=== PATIENT | male | born 1985 | race Caucasian/White ===

== ENCOUNTER 2019-09-10 13:35 | Emergency (ER) | payer OTHER, SELFPAY ==
[2019-09-10 13:55] VITALS: BP 146/89; PULSE 73; RESP 20; TEMP 37.1; O2SAT 98; BMI 23.6
--- NOTE | 2019-09-10 13:55 | XR_ITS ---
PROCEDURE: XR CHEST 2V CLINICAL HISTORY: DRY COUGH Smoker COMPARISON: No exams were available for comparison FINDINGS: The cardiomediastinal silhouette and pulmonary vascularity are within normal limits. The lungs are clear without infiltrates, suspicious nodules, or pleural effusions. No acute bony abnormalities. IMPRESSION: No acute findings. Dictated by: Gilberto Chapa MD 09/10/2019 14:42 Electronically signed by Gilberto Chapa MD in [place] 09/10/2019 14:42
--- NOTE | 2019-09-10 14:16 | HMH.EDUTC ---
[facility] [place] Disposition Clinical Impression: Acute bronchitis Qualifiers: Bronchitis organism: unspecified organism Qualified Code(s): J20.9 - Acute bronchitis, unspecified Disposition: Home, Self-Care Condition on Discharge: Good Instructions: Acute Bronchitis, DI for Acute Bronchitis Additional Instructions: Drink plenty of fluids. Take tylenol or ibuprofen for pain or fever. Take the medications as directed. Follow up with your regular doctor. GO TO THE ER FOR ANY WORSENING SYMPTOMS Don't start the oral steroids until tomorrow, since you had the shot here today. Prescriptions: predniSONE [Deltasone 10mg tablet] 10 mg PO BID 4 Days #8 tab Transmission Status: Received by [email or web address] #[id number] Cefdinir [Omnicef 300mg Capsule] 300 mg PO BID #20 cap Transmission Status: Received by [email or web address] # Referrals: Provider,Referral, [Primary Care Provider] - Forms: Work/School Release Time of Disposition: 14:43 Medical Decision Making - Medical Records Medical records reviewed: No: I reviewed the patient's medical records. - Mike Inquiry Pt receiving controlled substance: No Vital Signs: 09/10/19 13:55 09/10/19 14:58 Temperature 98.7 F 98.7 F Temperature Source Oral Pulse Rate 73 Pulse Rate [Right Brachial] 73 Respiratory Rate 20 20 Blood Pressure 146/89 H Blood Pressure [Right Arm] 146/89 H Blood Pressure Mean [Right Arm] 108 Blood Pressure Source [Right Arm] Automatic Cuff Blood Pressure Position [Right Arm] Sitting 02 Sat by Pulse Oximetry 98 Oxygen Delivery Method Room Air Orders (Tests/Meds): ED MEDICATIONS Discontinued Medications Generic Name Dose Route Start Last Admin Trade Name Hillary PRN Reason Stop Dose Admin Ceftriaxone Sodium 1 gm 09/10/19 14:25 09/10/19 14:39 Rocephin 1gm Vial IM 09/10/19 14:26 1 gm ONCE ONE Administration Protocol Lidocaine HCl 0 ml 09/10/19 14:25 09/10/19 14:39 Lidocaine 1% 10ml Mdv IM 09/10/19 14:26 2.1 ml ONCE ONE Administration Methylprednisolone Sodium Succinate 125 mg 09/10/19 14:25 09/10/19 14:39 Solu-Medrol 125mg/2ml Vial IM 09/10/19 14:26 125 mg ONCE ONE Administration ORDERS Category Date Time Status SARS-CoV-2, SIMONA Stat Lab 09/10/19 14:10 Received - Radiology Data #1 Image(s): Chest Image Reviewed: Yes I reviewed the patient's radiology image, Yes I have reviewed radiologist's interpretation Preliminary Findings: No Infiltrates Seen PROCEDURE: XR CHEST 2V CLINICAL HISTORY: DRY COUGH Smoker COMPARISON: No exams were available for comparison FINDINGS: The cardiomediastinal silhouette and pulmonary vascularity are within normal limits. The lungs are clear without infiltrates, suspicious nodules, or pleural effusions. No acute bony abnormalities. IMPRESSION: No acute findings. Dictated by: Gilberto Chapa MD 09/10/2019 14:42 Electronically signed by Gilberto Chapa MD in [place] 09/10/2019 14:42 [facility] [place] HPI - General Stated complaint: cough,vomiting Time Seen by Provider: 09/10/19 14:00 Mode of Arrival: Ambulatory Source of Information: Patient Limitations: No Limitations Description of Symptoms (Recalled from Triage Doc. by RN): PATIENT C/O STOMACH PAIN, NAUSEA, VOMITING, FATIGUE, COUGH, AND WEAKNESS X 4 DAYS. PREVIOUSLY TREATED WITH ANTIBIOTICS FOR A COUGH, BUT IS NO BETTER HEENT Symptoms (Recalled from RN notes): No Resp Symptoms (Recalled from RN notes): Yes Skin Symptoms (Recalled from RN notes): No MS Symptoms (Recalled from RN notes): No Functional Status (Recalled from RN notes): WNL - History of Present Illness Provider Complaint: He c/o 4 weeks of cough, chest congestion, nausea, and just generally feeling bad. He denies any known exposure to COVID-19. - Related Data Previous Rx's Medication Instructions Recorded Cefdinir [Omnicef 300mg Capsule] 300 mg PO BID #20 cap 09/10/19 predniSONE [Deltasone
[2019-09-10 14:58] VITALS: BP 146/89; PULSE 73; RESP 20; TEMP 37.1; O2SAT 98
[2019-09-12 14:27] LABS: Covid-19 Nasal PCR Sendout Lex Not Detected
== END 2019-09-10 15:02 | disposition home or self-care (01) ==
PROVIDERS: Emergency Provider Nurse Practitioner Family
DX: J20.9 Acute bronchitis, unspecified (principal); F17.210 Nicotine dependence, cigarettes, uncomplicated
CPT/HCPCS: 71046; 96372; 99202; U0004